=== PATIENT | male | born 1960 | race Caucasian/White ===

== ENCOUNTER 2023-06-30 07:07 | Emergency (ER) | payer OTHER ==
[~2023-06-30] VITALS: Ht 175.2 cm; Wt 74.8 kg
[~2023-06-30 07:07] MED LIST: BENADRYL25 MG PO; HYDROXYZINE IM; PAXIL40 MG PO; PT DOESN'T KNOW MEDS; RISPERDAL0.5 MG PO; SINEMET 10-1001 TA1 PO; VISTARIL25 M1 PO
[2023-06-30 07:26] LABS: BASO % 0.3 % (0.0-1.0); EOS # 0.1 10*3/uL (0.0-0.4); EOS % 1.1 % (1.0-4.0); HEMATOCRIT 42.2 % (42.0-52.0); LYMPH # 1.8 10*3/uL (1.3-4.4); LYMPH % 27.5 % (27.0-41.0); MEAN CORPUSCULAR HGB 30.4 pg (27.0-31.0); MEAN PLATELET VOLUME 8.9 fl (9.6-12.3); MONO # 0.4 10*3/uL (0.1-1.0); MONO % 5.6 % (3.0-9.0); NEUT # 4.2 10*3/uL (2.3-7.9); NEUT % 64.9 % (47.0-73.0); PLATELET COUNT AUTOMATED 200 10*3/uL (130-400); RED BLOOD COUNT 4.44 10*6/uL (4.50-5.90); RED CELL DISTRI WIDTH 12.2 % (0-14.5); WHITE BLOOD COUNT 6.4 10*3/uL (4.8-10.8)
[2023-06-30 07:29] LABS: URINE AMPHETAMINES Negative (1000ng/ml); URINE BARBITURATES Negative (200ng/ml); URINE BENZODIAZEPINES Negative (200ng/ml); URINE CANNABINOIDS (THC) Negative (50ng/ml); URINE COCAINE Negative (300ng/ml); URINE METHADONE Negative (300ng/ml); URINE OPIATES Negative (300ng/ml); URINE PHENCYCLIDINE Negative (25ng/ml)
[2023-06-30 07:52] LABS: BUN 11 mg/dl (9-23); CHLORIDE 104 mmol/L (98-107); POTASSIUM 3.4 mmol/L (3.4-5.1)
[2023-06-30 07:54] LABS: ETHYL ALCOHOL < 3.0 mg/dl (<3)
== END 2023-06-30 08:48 | disposition home or self-care (01) ==
LOC: ED 07:07
PROVIDERS: Internal Medicine
DX: S90.31XA Contusion of right foot, initial encounter (principal); S50.311A Abrasion of right elbow, initial encounter; M54.2 Cervicalgia; M54.6 Pain in thoracic spine; F41.9 Anxiety disorder, unspecified; V89.2XXA Person injured in unspecified motor-vehicle accident, traffic, initial encounter; Y93.89 Activity, other specified; Y92.410 Unspecified street and highway as the place of occurrence of the external cause; Y99.8 Other external cause status